=== PATIENT | female | born 1955 | race Caucasian/White ===

== ENCOUNTER 2019-05-02 15:07 | Emergency (ER) | payer OTHER, SELFPAY ==
[2019-05-02] VITALS (8 sets, daily range): BP systolic 143–170; BP diastolic 69–108; PULSE 58–72; RESP 12–19; TEMP 36.6; O2SAT 97–100
--- NOTE | ~2019-05-02 | XR_ITS ---
EXAMINATION: XR chest 2V DATE: 05/02/2019 16:49 INDICATION: Syncopal episode. Nausea. TECHNIQUE: frontal and lateral views of the chest were obtained. COMPARISON: None FINDINGS: The lungs are clear with no focal airspace opacities, pulmonary edema, pleural effusion or pneumothor ax. Moderate-sized hiatal hernia. Heart size is normal. Cholecystectomy clips in the right upper quad rant. Mild to moderate degenerative skeletal changes in the thoracic spine and bilateral acromioclavi cular joints. IMPRESSION: 1. No acute cardiopulmonary disease. 2. Moderate-sized hiatal hernia. Reviewed, dictated and finalized at location A. 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
--- NOTE | ~2019-05-02 | CT_ITS ---
EXAMINATION: CT brain wo con DATE: 05/02/2019 17:43 INDICATION: Syncope, dizziness and nausea TECHNIQUE: Computed tomography (CT) of the head was performed without intravenous contrast. Sagittal and coronal reconstructions were performed. The mA was adjusted according to patient size. Iterative reconstruction technique was employed. The dose-length product was 605.33 mGy-cm. COMPARISON: None FINDINGS: No acute intracranial hemorrhage, acute infarction or abnormal extra axial fluid collection. There is minimal scattered white matter hypoattenuation consistent with chronic small vessel ischemic disease . Ventricles are normal and symmetric. No mass/mass effect. Mild mucosal thickening the right maxill valery sinus. The orbits and mastoid air cells are normal. IMPRESSION: 1. No acute intracranial process. 2. Minimal scattered white matter hypoattenuation consistent with chronic small vessel ischemic disea se. Reviewed, dictated and finalized at location A. ASOUND TECHNOL IMPRESSION: 1. No acute intracranial process. 2. Minimal scattered white matter hypoattenuation consistent with chronic small vessel ischemic disease.
--- NOTE | 2019-05-02 15:09 | ECG_ITS ---
Measurements Intervals [place] Rate: 61 P: 38 TN: 152 QRS: 38 QRSD: 93 T: 4 QT: 413 QTc: 419 Interpretive Statements SINUS RHYTHM BORDERLINE ST-T WAVE ABNORMALITY- ANT/INF LEADS BORDERLINE ECG Electronically Signed On 05-02-2019 19:02:10 RIGGER UP by Wesley Grant D.O.
[2019-05-02 15:30] LABS: Basophils Percent Auto 0.4 % (0.2-1.2); Eosinophils Percent Auto 0.3 % (0-4.4); Hematocrit 41.9 % (37.0-47.0); Hemoglobin 13.8 g/dL (12.0-15.0); Immature Granulocyte Absolute 0.04 K/mm3 (0.00-0.031); Immature Granulocyte Percent A 0.4 % (0-0.5); Lymphocytes Absolute Auto 2.52 K/mm3 (0.9-3.2); Lymphocytes Percent Auto 23.7 % (18.3-44.2); Mean Corpuscular HGB Conc 32.9 g/dl (32-36); Mean Corpuscular Hemoglobin 29.5 pg (26-34); Mean Corpuscular Volume 89.5 fl (80-100); Mean Platelet Volume 9.7 fl (7.4-10.4); Monocytes Absolute Auto 0.6 K/mm3 (0.1-0.6); Monocytes Percent Auto 5.6 % (2.6-8.5); Neutrophils Absolute Auto 7.4 K/mm3 (1.3-6.7); Neutrophils Percent Auto 69.6 % (45.5-73.1); Platelet Count Result 394 k/mm3 (150-375); Red Blood Count 4.68 M/mm3 (4.2-5.4); Red Cell Distribution Width 13.4 % (11.5-14.5); White Blood Count 10.7 K/mm3 (4.5-10.0)
[2019-05-02 15:59] LABS: Blood Urea Nitrogen 17 mg/dL (7-17); Calcium 9.7 mg/dL (8.4-10.2); Carbon Dioxide 26 mmol/L (22-30); Chloride 100 mmol/L (98-107); Estimated Glomerular Filt Rate > 60; Glucose 125 mg/dL (65-105); Potassium 4.1 mmol/L (3.4-5.0); Sodium 138 mmol/L (137-145)
--- NOTE | 2019-05-02 16:25 | ED.DIZZY ---
HPI - Dizziness General Chief Complaint: Syncope Stated Complaint: syncope, dizzy, nausea Time Seen by Provider: 05/02/19 16:12 Source: patient Mode of arrival: wheelchair Limitations: no limitations History of Present Illness HPI Narrative: This is a 64 year old female that presents to the ER for dizziness today. Reports she had a syncopal episode yesterday morning while drying her hair. Reports she was bent over her bathtub washing her hair and started to feel lightheaded. Reports she passed out and fell to the floor. Reports she was able to get up and felt okay the rest of the day. Reports she woke up this morning and turned her head to the right and experienced sudden onset dizziness. Associated with nausea vomiting. Reports she has been laying in bed all day due to dizziness. Reports some chest pressure earlier today that was relieved after she took her reflux medicine. Denies fever, palpitations, shortness of breath, weakness, numbness, abdominal pain, dysuria or hematuria. Related Data Home Medications Medication Instructions Recorded Confirmed furosemide 20 mg tablet 20 mg PO QAM 04/07/19 sumatriptan succinate 100 mg tablet 100 mg PO ONCE 04/07/19 Nexium 05/02/19 aspirin 05/02/19 Allergies Allergy/AdvReac Type Severity Reaction Status Date / Time No Known Allergies Allergy Unverified 05/02/19 15:38 Review of Systems Review of Systems: Narrative: CONSTITUTIONAL: Denies fever ENT: Reports rhinorrhea, congestion. Denies sore throat, or otalgia. CARDIOVASCULAR: Reports chest pain RESPIRATORY: Denies cough or dyspnea. GASTROINTESTINAL: Reports nausea, vomiting. Denies abdominal pain GENITOURINARY: Denies dysuria or hematuria. NEUROLOGIC: Denies headache, numbness, or weakness. All systems reviewed & are unremarkable except as noted in HPI and below [facility] Past Medical History Medical History (Updated 05/02/19 @ 18:46 by Ninfa Holden PA-C) History of asthma History of gastroesophageal reflux (GERD) History of hypothyroidism Surgical History Surgical History (Updated 05/02/19 @ 16:26 by Ninfa Holden PA-C) History of cholecystectomy History of hysterectomy Social History Social History (Updated 05/02/19 @ 16:25 by Ninfa Holden PA-C) Smoking status: Never smoker Substance use: never Gender identity (if verbalized by the patient): Female Exam Narrative: Exam Narrative: GENERAL: Well-appearing, well-nourished, and in no acute distress. HEAD: Normocephalic, atraumatic. EYES: PERRLA and EOMI. ENT: Nares clear, no rhinorrhea or epistaxis. Mucous membranes moist. Oropharynx without tonsillar hypertrophy exudate or other lesions. Bilateral TMs pearly boyd non-bulging NECK: Supple. No adenopathy or masses. CHEST: Clear to auscultation. No respiratory distress. No wheezes rales or rhonchi HEART: Regular rate and rhythm. No murmur heard. Normal peripheral pulses EXTREMITIES: Normal range of motion. No edema. Strength equal bilateral upper and lower extremities (5/5) SKIN: Warm, dry, no rash. NEURO: No focal deficits. Alert and oriented x3. Cranial nerves II through XII grossly intact. Normal finger-nose. Normal [id number] PSYCH: Normal mood and affect Course Consultations Consultation #1: Spoke with patient's PCP about work-up will follow-up in clinic Date: 05/02/19 Time: 18:57 Vital Signs Vital signs: Vital Signs Temperature 97.8 F 05/02/19 15:10 Pulse Rate 69 05/02/19 15:10 Respiratory Rate 19 05/02/19 15:10 Blood Pressure 162/108 H 05/02/19 15:10 Pulse Oximetry 100 05/02/19 15:10 Temperature 97.8 F 05/02/19 15:10 Pulse Rate 58 L 05/02/19 18:00 Respiratory Rate 19 05/02/19 18:00 Blood Pressure 167/73 H 05/02/19 18:00 Pulse Oximetry 98 05/02/19 18:00 MDM - Dizziness MDM Narrative Medical decision making narrative: Patient presents to the ER for vertigo symptoms since this morning. Symptoms are consistent with BPPV. Sudden onset and
[2019-05-02 16:48] LABS: Troponin I < 0.012 ng/mL (0.000-0.034)
[2019-05-02] MEDS: ONDANSETRON INJ 4 MG/2 ML VIAL IV PUSH (16:53)
[2019-05-02] MEDS: MECLIZINE HCL 25 MG TABLET PO (16:54)
[2019-05-02] MEDS: SODIUM CHLORIDE 0.9% IV 1,000 ML 999 ML IV CONT (16:54)
[2019-05-02 16:55] LABS: D Dimer 0.36 ug/mL (<0.48)
[2019-05-02 18:09] LABS: Add Urine Microscopic? YES; Appearance Urine Clear (Clear); Bilirubin Urine Negative (Negative); Blood Urine Negative (Negative); Color Urine Yellow (Yellow); Glucose Urine UA Negative (Negative); Ketones Urine Negative (Negative); Leukocyte Esterase Ur Negative LEU/UL (Negative); Mucus Urine Rare /lpf; Nitrate Urine Negative (Negative); Protein Urine Negative (Negative); Specific Grav Ur 1.015 (1.001-1.035); Squamous Epithelial Cell Urine Occasional /hpf (Few); Urobilinogen Urine Negative mg/dL (<2.0); WBC Urine 0-3 /hpf
== END 2019-05-02 19:08 | disposition home or self-care (01) ==
PROVIDERS: Physician Assistant; Emergency Provider Emergency Medicine; PCP Family Medicine
DX: R42 Dizziness and giddiness (principal); J45.909 Unspecified asthma, uncomplicated; K21.9 Gastro-esophageal reflux disease without esophagitis; E03.9 Hypothyroidism, unspecified; K44.9 Diaphragmatic hernia without obstruction or gangrene; R94.31 Abnormal electrocardiogram [ECG] [EKG]
CPT/HCPCS: 36415; 70450; 71046; 80048; 81001; 84484; 85025; 85380; 87804; 93005; 96361; 96374; 99284; A9270; J2405; J7030

== ENCOUNTER 2019-12-12 07:19 | Outpatient (CLI) | payer OTHER, SELFPAY ==
--- NOTE | ~2019-12-12 | DEXA_ITS ---
Bone Density Report Name: Joyce Grimes Age: 64 Sex: Female Ethnicity: White Date of : 1955 Indication: postmenopausal; hysterectomy; Referring Provider: Syed Segura Study: Bone densitometry was performed. Exam Date: December 12, 2019 Accession number: [id number] Bone Density: Region BMD T-score Z-score Classification AP Spine (L1-L4) 0.995 -0.5 1.1 Normal Femoral Neck (Left) 0.693 -1.4 0.0 Osteopenia Total Hip (Left) 0.987 0.4 1.5 Normal Total Hip Bilateral Avg 0.959 0.2 1.3 Normal Femoral Neck (Right) 0.710 -1.3 0.2 Osteopenia Total Hip (Right) 0.931 -0.1 1.0 Normal World Health Organization criteria for BMD impression classify patients as: Normal (T-score at or above -1.0), Osteopenia (T-score between -1.0 and -2.5), or Osteoporosis (T-score at or below -2.5). 10-year Fracture Risk(1): Major Osteoporotic Fracture 7.8% Hip Fracture 0.7% Reported Risk Factors: [place] (), Neck BMD=0.693, BMI=33.6 (1) FRAX(R) Version 3.08. Fracture probability calculated for an untreated patient. Fracture probability may be lower if the patient has received treatment. Previous Exams: Region Exam Age BMD T-score BMD Change BMD Change Date g/cm2 vs Baseline vs Previous AP Spine(L1-L4) 12/12/2019 64 0.995 -0.5 -0.094(-8.6%)# -0.018(-1.8%) 12/01/2011 56 1.013 -0.3 -0.076(-7.0%)# -0.076(-7.0%)# 04/16/2009 54 1.089 0.4 Total Hip(Left) 12/12/2019 64 0.987 0.4 -0.062(-5.9%)# -0.054(-5.2%)* 12/01/2011 56 1.041 0.8 -0.008(-0.7%)# -0.008(-0.7%)# 04/16/2009 54 1.048 0.9 Total Hip(Right) 12/12/2019 64 0.931 -0.1 -0.052(-5.3%)# -0.039(-4.0%)* 12/01/2011 56 0.970 0.2 -0.014(-1.4%)# -0.014(-1.4%)# 04/16/2009 54 0.984 0.3 *Denotes significance at 95% confidence level, LSC for AP Spine = 0.022 g/cm2, LSC for Total Hip = 0.027 g/cm2 Clinical Information Provided by Patient: Has used the following medications: Vitamin D, Calcium Has the following medical conditions: Hysterectomy Patient maximum height was 65 Menopause Age: 52 No regular weight bearing exercise Drinks caffeinated beverages Onset of menses at age 16 Number of children 4 Impression: The patient has low bone mass, based on the Left Femoral Neck T-score. The patient has an estimated ten-year risk of hip fracture of 0.7% and an estimated ten-year risk of major fracture of 7.8%, based on the WHO FRAX algorithm. The BMD for the Tot
--- NOTE | ~2019-12-12 | MM_ITS ---
EXAMINATION: MM screening [facility] BI w kemal HISTORY: Screening mammogram TECHNIQUE: Craniocaudal and mediolateral oblique 3-D tomosynthesis images were obtained and synthetic 2-D images were generated. CAD analysis was submitted and interpreted. COMPARISON: 07/18/2018 diagnostic right digital mammogram and limited right breast ultrasound 07/03/2018, 06/26/2017 bilateral digital screening mammogram examinations BREAST PARENCHYMAL COMPOSITION: There are scattered areas of fibroglandular density. FINDINGS: There is no evidence of suspicious mass, calcification, or architectural distortion to sugg est malignancy in either breast. There has been no suspicious interval change. IMPRESSION: 1. No mammographic evidence of malignancy. 2. Recommend routine screening mammography in one year. BI-RADS Category 1: Negative Reviewed, dictated and finalized at location A.
== END 2019-12-12 07:20 | disposition home or self-care (01) ==
LOC: ANHIMG 07:21
PROVIDERS: PCP Family Medicine; Visit Provider Family Medicine
DX: Z12.39 Encounter for other screening for malignant neoplasm of breast (principal); Z78.0 Asymptomatic menopausal state; Z12.31 Encounter for screening mammogram for malignant neoplasm of breast; M85.852 Other specified disorders of bone density and structure, left thigh; M85.851 Other specified disorders of bone density and structure, right thigh
CPT/HCPCS: 77063; 77067; 77080

== ENCOUNTER 2020-12-24 07:28 | Outpatient (CLI) | payer OTHER, SELFPAY ==
--- NOTE | ~2020-12-24 | MM_ITS ---
EXAMINATION: MM screening [facility] BI w kemal HISTORY: Screening mammogram TECHNIQUE: Craniocaudal and mediolateral oblique 3-D tomosynthesis images were obtained and synthetic 2-D images were generated. CAD analysis was submitted and interpreted. COMPARISON: 12/12/2019, 07/18/2018, 07/03/2018, 06/26/2017 BREAST PARENCHYMAL COMPOSITION: There are scattered areas of fibroglandular density. FINDINGS: There is no evidence of suspicious mass, calcification, or architectural distortion to sugg est malignancy in either breast. There has been no suspicious interval change. IMPRESSION: 1. No mammographic evidence of malignancy. 2. Recommend routine screening mammography in one year. BI-RADS Category 1: Negative Reviewed, dictated and finalized at location A.
== END 2020-12-24 07:29 | disposition home or self-care (01) ==
PROVIDERS: PCP Family Medicine; Visit Provider Family Medicine
DX: Z12.31 Encounter for screening mammogram for malignant neoplasm of breast (principal)
CPT/HCPCS: 77063; 77067

== ENCOUNTER 2022-03-31 09:24 | Outpatient (CLI) | payer MEDICARE, OTHER, SELFPAY ==
--- NOTE | ~2022-03-31 | DEXA_ITS ---
Bone Density Report Name: LEE CALLE Age: 67 Sex: Female Ethnicity: White Date of : 1955 Indication: postmenopausal; screening for osteoporosis; hysterectomy; Referring Provider: JOYCE PACE Study: Bone densitometry was performed. Exam Date: March 31, 2022 Accession number: [id number] Bone Density: Region BMD T-score Z-score Classification AP Spine(L1-L4) 0.980 -0.6 1.2 Normal Femoral Neck (Left) 0.683 -1.5 0.0 Osteopenia Total Hip (Left) 0.978 0.3 1.5 Normal Femoral Neck (Right) 0.666 -1.7 -0.1 Osteopenia Total Hip (Right) 0.864 -0.6 0.6 Normal Total Hip Mean 0.921 -0.2 1.1 Normal World Health Organization criteria for BMD impression classify patients as: Normal (T-score at or above -1.0), Osteopenia (T-score between -1.0 and -2.5), or Osteoporosis (T-score at or below -2.5). 10-year Fracture Risk(1): Major Osteoporotic Fracture 8.7% Hip Fracture 1.0% Reported Risk Factors: [place] (), Neck BMD=0.666, BMI=33.1 (1) FRAX(R) Version 3.08. Fracture probability calculated for an untreated patient. Fracture probability may be lower if the patient has received treatment. Previous Exams: Region Exam Age BMD T-score BMD Change BMD Change Date g/cm2 vs Baseline vs Previous AP Spine (L1-L4) 03/31/2022 67 0.980 -0.6 -0.015 (-1.5%) -0.015 (-1.5%) 12/12/2019 64 0.995 -0.5 Total Hip(Left) 03/31/2022 67 0.978 0.3 -0.009 (-0.9%) -0.009 (-0.9%) 12/12/2019 64 0.987 0.4 Total Hip(Right) 03/31/2022 67 0.864 -0.6 -0.067 (-7.2%) -0.067 (-7.2%) 12/12/2019 64 0.931 -0.1 *Denotes significance at 95% confidence level, LSC for AP Spine = 0.022 g/cm2, LSC for Total Hip = 0.027 g/cm2 # Denotes dissimilar scan types or analysis methods Clinical Information Provided by Patient: Has used the following medications: Vitamin D Has the following medical conditions: Hysterectomy Patient maximum height was 65.5 Menopause Age: 30 No regular weight bearing exercise Drinks caffeinated beverages Onset of menses at age 16 Number of children 4 Impression: The patient has low bone mass, based on the Right Femoral Neck T-score. The patient has an estimated ten-year risk of hip fracture of 1% and an estimated ten-year risk of major fracture of 8.7%, based on the WHO FRAX algorithm. No significant bone loss was observed. Discussion: BONE DENSITY IS LOW AT ONE OR MORE SKELETAL SITES. This patient'
== END 2022-03-31 09:25 | disposition home or self-care (01) ==
LOC: ANHIMG 09:25
PROVIDERS: PCP Emergency Medicine; Visit Provider Physician Assistant
DX: Z78.0 Asymptomatic menopausal state (principal); M85.852 Other specified disorders of bone density and structure, left thigh; M85.851 Other specified disorders of bone density and structure, right thigh
CPT/HCPCS: 77080

== ENCOUNTER 2022-05-12 09:19 | Outpatient (CLI) | payer MEDICARE, OTHER, SELFPAY ==
--- NOTE | ~2022-05-12 | MM_ITS ---
EXAMINATION: MM screening [facility] BI w kemal HISTORY: Screening mammogram TECHNIQUE: Craniocaudal and mediolateral oblique 3-D tomosynthesis images were obtained and synthetic 2-D images were generated. CAD analysis was submitted and interpreted. COMPARISON: 12/24/2020, 12/12/2019 bilateral screening mammogram examinations BREAST PARENCHYMAL COMPOSITION: There are scattered areas of fibroglandular density. FINDINGS: Stable mildly nodular fibroglandular stroma. There is no evidence of suspicious mass, calci fication, or architectural distortion to suggest malignancy in either breast. There has been no suspi cious interval change. IMPRESSION: 1. No mammographic evidence of malignancy. 2. Recommend routine screening mammography in one year. BI-RADS Category 2: Benign finding(s). Reviewed, dictated and finalized at location A. 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
== END 2022-05-12 09:20 | disposition home or self-care (01) ==
PROVIDERS: PCP Emergency Medicine; Visit Provider Physician Assistant
DX: Z12.31 Encounter for screening mammogram for malignant neoplasm of breast (principal)
CPT/HCPCS: 77063; 77067

== ENCOUNTER 2022-12-31 08:14 | Emergency (ER) | payer MEDICARE, OTHER, SELFPAY ==
[2022-12-31] VITALS (8 sets, daily range): BP systolic 119–168; BP diastolic 65–106; PULSE 73–91; RESP 15–20; TEMP 36.2; O2SAT 96–98
--- NOTE | ~2022-12-31 | XR_ITS ---
EXAMINATION: XR chest 2V 12/31/2022 08:55 INDICATION: Chest discomfort PROCEDURE: 2 view chest COMPARISON: 05/02/2019 FINDINGS: The lungs are clear. The cardiomediastinal silhouette is within normal limits. There are no pleural effusions. There is no pneumothorax suspected. . Large hiatal hernia. There are cholecys tectomy clips. IMPRESSION: 1: NO ACUTE CARDIOPULMONARY DISEASE. 2: Large hiatal hernia. Reviewed, dictated and finalized at location B.
--- NOTE | 2022-12-31 08:15 | ECG_ITS ---
Measurements Intervals [place] Rate: 96 P: [place]: 0 QRS: 44 QRSD: 91 T: 25 QT: 343 QTc: 434 Interpretive Statements ATRIAL FIBRILLATION NONSPECIFIC T-WAVE ABNORMALITY ABNORMAL RHYTHM ECG COMPARED TO ECG 05/02/2019 15:15:35 ATRIAL FIBRILLATION NOW PRESENT T-WAVE ABNORMALITY NOW PRESENT Electronically Signed On 12-31-2022 9:30:10 CDT by Mauro Cruz M.D.
--- NOTE | 2022-12-31 08:26 | ED.CHESTPAIN ---
HPI - Chest Pain General Chief Complaint: Chest Pain Stated Complaint: RAPID HR, CP Time Seen by Provider: 12/31/22 08:20 History of Present Illness HPI narrative: Patient is a 67-year-old female who presents ER with palpitations. Ongoing over the last couple days. Associate with dyspnea and chest heaviness. No radiation of discomfort. No alleviating factors. Takes atenolol daily since having an elevated heart rate many years ago. Has no known arrhythmia. Patient also takes levothyroxine. No fevers chills or sweats. No runny nose or sore throat or productive cough. No pain with deep breath. No leg swelling. Related Data Home Medications Medication Instructions Recorded Confirmed aspirin 81 mg chewable tablet 05/02/19 06/18/22 Allergies Allergy/AdvReac Type Severity Reaction Status Date / Time No Known Allergies Allergy Verified 06/18/22 14:53 Review of Systems Review of Systems: All systems reviewed & are unremarkable except as noted in HPI and below Constitutional: Constitutional: Reports no additional constitutional complaints Cardiovascular: Cardiovascular: Reports chest pain, Reports rapid heart rate and Denies radiating jaw, neck or arm pain Respiratory: Respiratory: Denies cough and Reports dyspnea Gastrointestinal: Gastrointestinal: Denies abdominal pain, Denies diarrhea, Denies nausea and Denies vomiting Genitourinary: Genitourinary: Reports no additional female genitourinary complaints Musculoskeletal: Musculoskeletal: Reports no additional musculoskeletal complaints [facility] Past Medical History Medical History (Updated 12/31/22 @ 13:45 by Will Haskins MD) History of asthma History of gastroesophageal reflux (GERD) History of hypothyroidism Surgical History Surgical History History of anterior cruciate ligament surgery History of cholecystectomy History of hysterectomy Hx of knee surgery Family History Family History Mother Diabetes mellitus Family history of cardiovascular disease Other Family history of elevated blood lipids Family history of malignant neoplasm Social History Social History Smoking status: Never smoker Alcohol intake: never Substance use: never Lack of Transportation: No Lack of Food: Never True Current Housing: I Have Housing Concerned About Future Housing: No Difficulty Paying Gas/Electric Bills: No Difficulty Paying for Meds: No Currently Unemployed: No Education: High School Diploma/GED Difficulty w/ Childcare or Family Care: No Gender identity (if verbalized by the patient): Female Exam Narrative: GENERAL: Well-appearing, well-nourished, and in no acute distress. HEAD: Normocephalic, atraumatic. ENT: Mucous membranes moist. NECK: Supple. CHEST: Clear to auscultation. No respiratory distress. HEART: Irregularly irregular rate and rhythm normal peripheral pulses. ABDOMEN: Soft, nontender, nondistended. EXTREMITIES: Normal range of motion. No edema. SKIN: Warm, dry, no rash. NEURO: Alert and oriented x3. PSYCH: Normal mood and affect. Course Course Emergency Course: Troponin negative x2. Discussed with [facility] and its recommend patient be discharged home and have her atenolol discontinued and have her started on metoprolol 25 mg daily. It is also recommended patient be on apixaban 5 mg twice a day. They will have her follow-up in clinic. Patient will also follow-up with PCP regarding TSH level. Vital Signs Vital signs: Vital Signs Temperature 97.2 F L 12/31/22 08:23 Pulse Rate 91 12/31/22 08:23 Respiratory Rate 15 12/31/22 08:23 Blood Pressure 164/106 H 12/31/22 08:23 Pulse Oximetry 96 12/31/22 08:23 Oxygen Delivery Room Air 12/31/22 08:23 Temperature 97.2 F L 12/31/22 08:23 Pulse Rate 84
[2022-12-31 08:42] LABS: Basophils Absolute Auto 0.1 K/mm3 (0.0-0.1); Basophils Percent Auto 0.9 % (0.2-1.2); Eosinophils Absolute Auto 0.2 K/mm3 (0-0.3); Hematocrit 43.9 % (37.0-47.0); Hemoglobin 14.2 g/dL (12.0-15.0); Immature Granulocyte Absolute 0.01 K/mm3 (0.00-0.031); Immature Granulocyte Percent A 0.1 % (0-0.5); Lymphocytes Absolute Auto 3.72 K/mm3 (0.9-3.2); Lymphocytes Percent Auto 48.6 % (18.3-44.2); Mean Corpuscular HGB Conc 32.3 g/dl (32-36); Mean Corpuscular Hemoglobin 28.4 pg (26-34); Mean Corpuscular Volume 87.8 fl (80-100); Mean Platelet Volume 9.4 fl (7.4-10.4); Monocytes Absolute Auto 0.6 K/mm3 (0.1-0.6); Monocytes Percent Auto 7.8 % (2.6-8.5); Neutrophils Absolute Auto 3.1 K/mm3 (1.3-6.7); Neutrophils Percent Auto 40.6 % (45.5-73.1); Platelet Count Result 409 k/mm3 (150-375); White Blood Count 7.7 K/mm3 (4.5-10.0)
[2022-12-31] MEDS: ASPIRIN 81 MG CHEWABLE TABLET 324 MG PO (08:45)
[2022-12-31 08:52] LABS: Alanine Aminotransferase 20 U/L (6-35); Albumin Level 4.5 g/dL (3.5-5.1); Alkaline Phosphatase 83 U/L (38-126); Anion Gap 9 mmol/L (8-16); Aspartate Amino Transferase 24 U/L (14-36); Bilirubin,Total 0.5 mg/dL (0.2-1.3); Blood Urea Nitrogen 22 mg/dL (7-17); Calcium 9.7 mg/dL (8.4-10.2); Carbon Dioxide 25 mmol/L (22-30); Chloride 104 mmol/L (98-107); Estimated CRCL calculation 55 ml/min; Estimated Glomerular Filt Rate 56; Glucose 114 mg/dL (65-110); Lipase 83 U/L (23-300); Potassium 4.1 mmol/L (3.4-5.0); Sodium 138 mmol/L (137-145)
[2022-12-31 08:56] LABS: Prothrombin Time 13.6 Seconds (11.1-14.7)
[2022-12-31 09:03] LABS: Troponin I < 0.012 ng/mL (0.000-0.034)
[2022-12-31 10:27] LABS: Thyroid Stimulating Hormone Reflex 0.274 uIU/mL (0.465-4.68)
[2022-12-31 10:57] LABS: Free T4 Free Thyroxine Reflex 1.98 ng/dL (0.78-2.19)
[2022-12-31 11:42] LABS: Total Triiodothyronine (T3) 1.35 NG/ML (0.97-1.69)
[2022-12-31 12:17] LABS: Troponin I < 0.012 ng/mL (0.000-0.034)
== END 2022-12-31 13:58 | disposition home or self-care (01) ==
PROVIDERS: Emergency Provider Emergency Medicine; PCP Emergency Medicine
DX: I48.91 Unspecified atrial fibrillation (principal); K21.9 Gastro-esophageal reflux disease without esophagitis; E03.9 Hypothyroidism, unspecified; J45.909 Unspecified asthma, uncomplicated
CPT/HCPCS: 36415; 71046; 80053; 83690; 84439; 84443; 84480; 84484; 85025; 85610; 85730; 93005; 99284; A9270

== ENCOUNTER 2023-02-19 04:57 | Emergency (ER) | payer MEDICARE, OTHER, SELFPAY ==
[2023-02-19] VITALS (7 sets, daily range): BP systolic 145–193; BP diastolic 71–83; PULSE 62–74; RESP 14–20; TEMP 36.6; O2SAT 94–100
--- NOTE | ~2023-02-19 | US_ITS ---
EXAMINATION:US venous doppler LE LT INDICATION:Posterior knee pain TECHNIQUE: Multiple grayscale, color flow and Doppler images of the left lower extremity deep venous systems were obtained and reviewed. COMPARISON:No prior studies for comparison. FINDINGS: The common femoral, superficial femoral and popliteal veins demonstrate normal respiratory variation, augmentation and compressibility. Color flow is also seen within the posterior tibial, pe roneal, greater saphenous and profunda veins. IMPRESSION: 1: No lower extremity deep venous thrombosis. Reviewed, dictated and finalized at location L. 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
--- NOTE | ~2023-02-19 | XR_ITS ---
EXAMINATION: XR knee LT 3V DATE: 02/19/2023 10:09 INDICATION: Left knee pain. TECHNIQUE: 3 views of left knee were obtained. COMPARISON: None. FINDINGS: Bone alignment is normal. No fracture. There is mild tricompartmental osteoarthritis. No kn ee joint effusion. IMPRESSION: 1. Mild left knee osteoarthritis. Reviewed, dictated and finalized at location A. PER AND PRESERVER
--- NOTE | 2023-02-19 05:05 | ECG_ITS ---
Measurements Intervals [place] Rate: 68 P: 34 HI: 161 QRS: 14 QRSD: 90 T: 12 QT: 401 QTc: 427 Interpretive Statements SINUS RHYTHM CONSIDER ANTERIOR INFARCT, AGE INDETERMINATE BASELINE ARTIFACT- V4 ABNORMAL ECG COMPARED TO ECG 12/31/2022 08:21:19 SINUS RHYTHM NOW PRESENT Electronically Signed On 02-19-2023 6:50:46 MAIL DELIVERER by Wesley Grant D.O.
[2023-02-19 06:16] LABS: Basophils Absolute Auto 0.1 K/mm3 (0.0-0.1); Basophils Percent Auto 0.8 % (0.2-1.2); Eosinophils Absolute Auto 0.2 K/mm3 (0-0.3); Eosinophils Percent Auto 2.3 % (0-4.4); Hematocrit 39.4 % (37.0-47.0); Hemoglobin 12.6 g/dL (12.0-15.0); Immature Granulocyte Absolute 0.03 K/mm3 (0.00-0.031); Immature Granulocyte Percent A 0.5 % (0-0.5); Lymphocytes Absolute Auto 3.09 K/mm3 (0.9-3.2); Lymphocytes Percent Auto 47.8 % (18.3-44.2); Mean Corpuscular Hemoglobin 28.4 pg (26-34); Mean Corpuscular Volume 88.9 fl (80-100); Mean Platelet Volume 9.4 fl (7.4-10.4); Monocytes Absolute Auto 0.5 K/mm3 (0.1-0.6); Monocytes Percent Auto 7.6 % (2.6-8.5); Neutrophils Absolute Auto 2.7 K/mm3 (1.3-6.7); Platelet Count Result 326 k/mm3 (150-375); Red Blood Count 4.43 M/mm3 (4.2-5.4); Red Cell Distribution Width 13.7 % (11.5-14.5); White Blood Count 6.5 K/mm3 (4.5-10.0)
[2023-02-19 06:24] LABS: INR 1.1; Prothrombin Time 15.1 Seconds (11.1-14.7)
[2023-02-19 06:25] LABS: Partial Thromboplastin Time 28.3 SECONDS (22.3-36.8)
[2023-02-19 06:27] LABS: Alanine Aminotransferase 17 U/L (6-35); Albumin Level 4.1 g/dL (3.5-5.1); Alkaline Phosphatase 73 U/L (38-126); Anion Gap 10 mmol/L (8-16); Aspartate Amino Transferase 27 U/L (14-36); Bilirubin,Total 0.4 mg/dL (0.2-1.3); Blood Urea Nitrogen 21 mg/dL (7-17); Calcium 9.3 mg/dL (8.4-10.2); Carbon Dioxide 25 mmol/L (22-30); Chloride 105 mmol/L (98-107); Estimated CRCL calculation 66 ml/min; Estimated Glomerular Filt Rate > 60; Glucose 113 mg/dL (65-110); Lipase 72 U/L (23-300); Potassium 4.1 mmol/L (3.4-5.0); Sodium 140 mmol/L (137-145)
[2023-02-19 06:37] LABS: Troponin I < 0.012 ng/mL (0.000-0.034)
--- NOTE | 2023-02-19 07:54 | ED.GENADULT ---
HPI - General Adult General Chief complaint: Arrhythmia/Palpitations Stated complaint: palpations Time Seen by Provider: 02/19/23 06:56 History of Present Illness HPI narrative: 67-year-old female presenting to the emergency department for evaluation some posterior left knee pain after episode of AFib. Patient was diagnosed with AFib in December and is currently taking Eliquis and metoprolol. Patient follows up with Dr. Null. But 2 weeks ago patient reports she had about 2 hours of a run AFib and afterwards started having some left knee pain left knee pain has persisted. Patient denies any posterior calf or medial thigh pain. Patient denies any associated chest pain or shortness of breath. Related Data Allergies Allergy/AdvReac Type Severity Reaction Status Date / Time No Known Allergies Allergy Verified 01/18/23 13:49 Review of Systems Review of Systems: All systems reviewed & are unremarkable except as noted in HPI and below PMFSH Past Medical History Medical History (Updated 02/19/23 @ 09:39 by Audi Hogan MD) History of asthma History of gastroesophageal reflux (GERD) History of hypothyroidism Surgical History Surgical History History of anterior cruciate ligament surgery History of cholecystectomy History of hysterectomy Hx of knee surgery Family History Family History Mother Diabetes mellitus Family history of cardiovascular disease Other Family history of elevated blood lipids Family history of malignant neoplasm Social History Social History Smoking status: Never smoker Alcohol intake: never Substance use: never Lack of Transportation: No Lack of Food: Never True Current Housing: I Have Housing Concerned About Future Housing: No Difficulty Paying Gas/Electric Bills: No Difficulty Paying for Meds: No Currently Unemployed: No Education: High School Diploma/GED Difficulty w/ Childcare or Family Care: No Gender identity (if verbalized by the patient): Female Exam Narrative: APPEARANCE: Well appearing, no pain, no distress, well-nourished. HEAD: normocephalic, atraumatic. EYES: PERRLA/EOMI, conjunctivae clear. NOSE: Normal no drainage EARS:TMS clear with good light reflex. THROAT: Pharynx clear, no exudate. NECK: Supple. No adenopathy, no masses. RESPIRATORY: Airway patent, respirations nonlabored. Clear to auscultation bilaterally, no rales, rhonchi, wheezing. CARDIOVASCULAR: Regular rate and rhythm without murmurs rubs or gallops. ABDOMINAL: Soft, nontender, nondistended, normal bowel sounds MUSCULOSKELETAL: No significant lower extremity edema no posterior calf tenderness and no medial thigh tenderness to palpation. Patient does have some left posterior knee tenderness to palpation NEURO: Alert. Cranial nerves II through XII intact. Good gait. Good coordination SKIN: Warm, dry. Normal Color PSYCHIATRIC: Normal affect/mood. Course Course Emergency Course: 67-year-old female presents emergency department for evaluation for left knee pain. Patient is afebrile with no leukocytosis and hemoglobin of 12.6. INR is 1.1. No significant abnormalities on her CMP. Ultrasound was negative for DVT. Patient had negative serial troponins. Patient denies any heart palpitations denies any chest pain. Patient was encouraged of close follow-up with Cardiology. X-ray was negative for acute fracture dislocation. Patient and family are updated on all of the labs imaging the ultrasound and x-rays. All questions concerns were addressed patient was comfortable the plan with discharge and close follow-up with her primary care physician Vital Signs Vital signs: Vital Signs Temperature 97.8 F 02/19/23 05:02 Pulse Rate 74 02/19/23 05:02 Respiratory Rate 20 02/19/23 05:02 Blood Press
[2023-02-19 09:33] LABS: Troponin I < 0.012 ng/mL (0.000-0.034)
== END 2023-02-19 10:39 | disposition home or self-care (01) ==
PROVIDERS: Emergency Medicine; Emergency Provider Emergency Medicine; PCP Emergency Medicine
DX: M79.605 Pain in left leg (principal); J45.909 Unspecified asthma, uncomplicated; K21.9 Gastro-esophageal reflux disease without esophagitis; E03.9 Hypothyroidism, unspecified; Z79.01 Long term (current) use of anticoagulants
CPT/HCPCS: 36415; 73562; 80053; 83690; 84484; 85025; 85610; 85730; 93005; 93971; 99284

== ENCOUNTER 2023-04-06 11:53 | Outpatient (CLI) | payer MEDICARE, OTHER, SELFPAY ==
--- NOTE | ~2023-04-06 | MR_ITS ---
MRI of the left knee Clinical history: Internal drainage Technique: Coronal proton density and proton density-weighted images, sagittal proton-density and T2 fat-sat images, and axial proton-density fat-saturated images were acquired. Findings: Anterior and posterior cruciate ligaments are intact. Medial collateral ligament and the la teral collateral ligament conflux are intact. Popliteus tendon is intact. There is a radial tear at the posterior root of the medial meniscus. No lateral meniscal tear seen. There is mild diffuse chondral thinning along the medial femoral condyle. Lateral compartment articul ar cartilage dose is minimal thinning. There is moderate to high-grade chondral malacia over the medi al patellar facet. Femoral trochlear cartilage demonstrates moderate thinning medially. Extensor mechanism is intact. There is minimal joint effusion. There is small to moderate Santoyo's cys t. Impression: Radial tear at the posterior root of the medial meniscus. Mild degenerative change overall, as detailed above. Dliua-vv-qeaadzrt complex Santoyo's cyst. Reviewed, dictated and finalized at location . E TRANSITION Impression: Radial tear at the posterior root of the medial meniscus. Mild degenerative change overall, as detailed above. Yuxin-et-qdltjmwv complex Santoyo's cyst.
--- NOTE | ~2023-04-06 | XR_ITS ---
Left Knee Technique: AP, lateral, and sunrise views were obtained. Clinical History: Pain Findings: No fracture or dislocation is seen. Osseous alignment is anatomic. Joint spaces are preserv ed without degenerative or erosive change. Soft tissues are unremarkable. No joint effusion is seen. Impression: Unremarkable left knee radiographs. Reviewed, dictated and finalized at location . 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
== END 2023-04-06 11:54 | disposition home or self-care (01) ==
LOC: ANHIMG 11:54
PROVIDERS: PCP Emergency Medicine; Visit Provider Family Medicine
DX: M17.12 Unilateral primary osteoarthritis, left knee (principal); S83.242A Other tear of medial meniscus, current injury, left knee, initial encounter; M71.22 Synovial cyst of popliteal space [Baker], left knee; X58.XXXA Exposure to other specified factors, initial encounter
CPT/HCPCS: 73562; 73721

== ENCOUNTER 2023-05-02 11:20 | Outpatient (CLI) | payer MEDICARE, OTHER, SELFPAY ==
[2023-05-02 20:16] LABS: Free T4 Free Thyroxine 1.65 ng/mL (0.78-2.19)
[2023-05-02 21:16] LABS: Total Triiodothyronine (T3) 0.98 NG/ML (0.97-1.69)
== END 2023-05-02 11:21 | disposition home or self-care (01) ==
LOC: ANHGOSHLAB 11:22
PROVIDERS: PCP Emergency Medicine; Visit Provider Emergency Medicine
DX: E03.9 Hypothyroidism, unspecified (principal); I10 Essential (primary) hypertension
CPT/HCPCS: 36415; 84439; 84443; 84480

== ENCOUNTER 2023-05-31 13:24 | Outpatient (CLI) | payer MEDICARE, OTHER, SELFPAY ==
[2023-05-31 16:51] LABS: Free T4 Free Thyroxine 1.18 ng/mL (0.78-2.19)
== END 2023-05-31 13:25 | disposition home or self-care (01) ==
LOC: ANHGOSHLAB 13:27
PROVIDERS: PCP Emergency Medicine; Visit Provider Emergency Medicine
DX: E03.9 Hypothyroidism, unspecified (principal); I10 Essential (primary) hypertension
CPT/HCPCS: 36415; 84439; 84443; 84480

== ENCOUNTER 2023-07-09 15:13 | Outpatient (CLI) | payer MEDICARE, OTHER, SELFPAY ==
--- NOTE | ~2023-07-09 | MM_ITS ---
EXAMINATION: MM screening becka BI w kemal HISTORY: Screening TECHNIQUE: Craniocaudal and mediolateral oblique 3-D tomosynthesis images were obtained and synthetic 2-D images were generated. CAD analysis was submitted and interpreted. COMPARISON: Comparison to multiple prior studies sequentially, with oldest reviewed study dated 12/11. BREAST PARENCHYMAL COMPOSITION: Not dense: There are scattered areas of fibroglandular density. FINDINGS: The right breast is stable without evidence for malignancy. There are developing asymmetrie s in the lateral aspect of the left breast. IMPRESSION: 1. Developing left breast asymmetries. 2. Additional mammographic views and possible breast ultrasound are recommended. BI-RADS Category 0: Incomplete: Needs additional imaging evaluation. Reviewed, dictated and finalized at location B. IMPRESSION: 1. Developing left breast asymmetries. 2. Additional mammographic views and possible breast ultrasound are recommended . BI-RADS Category 0: Incomplete: Needs additional imaging evaluation.
== END 2023-07-09 15:14 | disposition home or self-care (01) ==
PROVIDERS: PCP Emergency Medicine; Visit Provider Emergency Medicine
DX: Z12.31 Encounter for screening mammogram for malignant neoplasm of breast (principal); R92.8 Other abnormal and inconclusive findings on diagnostic imaging of breast
CPT/HCPCS: 77063; 77067

== ENCOUNTER 2023-07-16 09:41 | Outpatient (CLI) | payer MEDICARE, OTHER, SELFPAY ==
--- NOTE | ~2023-07-16 | MMUS_ITS ---
EXAMINATION: MM diagnostic becka LT w kemal, US breast LT limited HISTORY: Developing lateral left breast asymmetries reported on July 09, 2023 screening mammogram TECHNIQUE: Additional 3-D tomosynthesis images of the left breast were performed and synthetic 2-D im ages were generated. CAD analysis was submitted and interpreted. High resolution upper outer and lowe r-outer quadrant left breast ultrasound was performed. COMPARISON: July 09, 2023 bilateral screening mammogram FINDINGS: MAMMOGRAPHIC FINDINGS: No suspicious mass, architectural distortion, malignant calcification, skin thickening or retraction is detected. Occasional small low-density circumscribed opacities, benign in appearance. ULTRASOUND: 12:00 near nipple: 3.4 x 4.9 x 2.8 mm circumscribed largely sonolucent lesion, without posterior shad owing or internal vascularity, benign in appearance. 4:00 near nipple: 3.8 x 3.8 x 2.7 mm circumscribed oval sonolucency consistent with small cyst No suspicious mass or shadowing is detected. IMPRESSION: 1. Benign findings 2. Routine annual mammographic screening is recommended BI-RADS Category 2: Benign finding(s). Reviewed, dictated and finalized at location A. IMPRESSION: 1. Benign findings 2. Routine annual mammographic screening is recommended BI-RADS Category 2: Benign finding(s).
== END 2023-07-16 09:42 | disposition home or self-care (01) ==
LOC: CHSIMG 09:42
PROVIDERS: PCP Emergency Medicine; Visit Provider Emergency Medicine
DX: R92.8 Other abnormal and inconclusive findings on diagnostic imaging of breast (principal)
CPT/HCPCS: 76642; 77061; 77065; G0279

== ENCOUNTER 2023-09-12 11:31 | Outpatient (CLI) | payer MEDICARE, OTHER, SELFPAY ==
--- NOTE | ~2023-09-12 | XR_ITS ---
XR chest 2V 09/12/2023 11:49 Indication: Shortness of breath Procedure: 2 view chest Comparison: 12/31/2022 Findings: Large hiatal hernia. Heart size normal. No focal air space disease, pulmonary edema, pleura l effusion or suspected pneumothorax. Impression: 1: Large hiatal hernia. Reviewed, dictated and finalized at location B. Impression: 1: Large hiatal hernia.
== END 2023-09-12 11:32 | disposition home or self-care (01) ==
PROVIDERS: PCP Emergency Medicine; Visit Provider Internal Medicine Cardiovascular Disease
DX: R06.02 Shortness of breath (principal); K44.9 Diaphragmatic hernia without obstruction or gangrene
CPT/HCPCS: 71046

== ENCOUNTER 2023-10-31 10:33 | Outpatient (CLI) | payer MEDICARE, OTHER, SELFPAY ==
[2023-10-31 14:14] LABS: Free T4 Free Thyroxine 1.19 ng/mL (0.78-2.19)
[2023-10-31 14:56] LABS: Total Triiodothyronine (T3) 1.14 NG/ML (0.97-1.69)
== END 2023-10-31 10:34 | disposition home or self-care (01) ==
LOC: ANHGOSHLAB 10:34
PROVIDERS: PCP Emergency Medicine; Visit Provider Emergency Medicine
DX: F33.9 Major depressive disorder, recurrent, unspecified (principal); E03.9 Hypothyroidism, unspecified; I48.19 Other persistent atrial fibrillation
CPT/HCPCS: 36415; 84439; 84443; 84480

== ENCOUNTER 2023-12-09 09:23 | Outpatient (CLI) | payer MEDICARE, OTHER, SELFPAY ==
[2023-12-09 13:39] LABS: Total Triiodothyronine (T3) 1.14 NG/ML (0.97-1.69)
[2023-12-09 13:52] LABS: Free T4 Free Thyroxine 1.18 ng/mL (0.78-2.19)
== END 2023-12-09 09:24 | disposition home or self-care (01) ==
PROVIDERS: PCP Emergency Medicine; Visit Provider Emergency Medicine
DX: E03.9 Hypothyroidism, unspecified (principal)
CPT/HCPCS: 36415; 84439; 84443; 84480

== ENCOUNTER 2024-06-20 16:32 | Emergency (ER) | payer MEDICARE, OTHER, SELFPAY ==
--- NOTE | ~2024-06-20 | XR_ITS ---
HISTORY: distal thumb injury COMPARISON: None TECHNIQUE: 2 views of the right first digit FINDINGS: No acute fracture. Significant degenerative disease is identified with joint space narrowing, and radial erosion with ov erhanging edges. Soft tissues are unremarkable without radiopaque foreign body, soft tissue swelling or significant ca lcification. Diffuse bony demineralization. IMPRESSION: Findings suggesting long-standing arthritis of the distal interphalangeal joint space of the right thumb, as detailed above. No acute fracture. Reviewed, dictated and finalized at location A. IMPRESSION: Findings suggesting long-standing arthritis of the distal interpha langeal joint space of the right thumb, as detailed above. No acute fracture.
--- OUTSIDE RECORDS SUMMARY | 2024-06-20 16:34 | XMS_ITS | Clinical Summary ---
Author Organization [facility] Address [address] [place] [phone] Phone Care Team Providers Care Machine Filler Servicer Name Role Phone Provider, Unknown Primary Care Provider Unavaila ble Allergies No known active allergies Medications atenolol (TENORMIN) 100 MG Tablet 12/14/2019 Active Synthroid 137 MCG Tablet 01/12/2020 Active furosemide (LASIX) 20 MG Tablet 12/14/2019 Active ASPIRIN PO Take by mouth. Active Active Problems No known active problems Social History Tobacco Use Types Packs/Day Years Used Date Smoking Tobacco: Never Smokeless Tobacco: Never Comments No Sex and Gender Information Value Date Recorded Sex Assigned at Not on file Legal Sex Female 2:28 PM EGG TESTER Gender Identity Not on file Sexual Orientation Not on file Last Filed Vital Signs Vital Sign Reading Time Taken Comments Blood Pressure 100/70 01/30/2020 3:09 PM EGG TESTER Pulse 78 01/30/2020 3:09 PM EGG TESTER Temperature 36.6 C (97.8 F) 01/30/2020 3:09 PM EGG TESTER Respiratory Rate 20 01/30/2020 3:09 PM EGG TESTER Oxygen Saturation 98% 01/30/2020 3:09 PM EGG TESTER Inhaled Oxygen Concentration - - Weight - - Height - - Body Mass Index - - Plan of Treatment Health Maintenance Due Date Last Done Comments DEXA Bone Density 1955 Hepatitis C Virus (HCV) Screening 1955 Colonoscopy 2002 Colorectal Cancer Screening 2002 Cologuard 2007 Immunochemical Fecal Occult Blood 2007 Mammogram 2007 Pneumococcal Immunization (5 0+ years) (1 of 1 - PCV) 2007 Zoster Immunization (1 of 2) 2007 Influenza Immunization (#1) 2023 11/20/2017 SARS-COV-2 Immunization ( season) 2023 12/12/2020, 11/21/2020 Respiratory Syncytial Virus (RSV) Immunization (Adult) (1 - 1-dose 75+ series) 2032 DTaP/Tdap/Td Immunization Discontinued 11/20/2019 TdaP Immunization Completed 11/20/2019 Hepatitis B Immunization Aged Out No longer eligible based on patient's age to complete this topic Meningococcal Immunization (ACWY) Aged Out No longer eligible based on patient's age to complete this topic Rotavirus Immunization Aged Out No lo nger eligible based on patient's age to complete this topic Care Teams Machine Filler Servicer Relationship Specialty Start Date End Date Provider, Unknown UNKNOWN PCP - General 01/30/20
[2024-06-20 16:36] VITALS: BP 162/81; PULSE 67; RESP 16; TEMP 36.9; O2SAT 98
--- OUTSIDE RECORDS SUMMARY | 2024-06-20 17:13 | XMS_ITS | Clinical Summary ---
Author Organization [facility] Address [address] [place] [phone] Phone Care Team Providers Care Facilities Coordinator Name Role Phone Provider, Unknown Primary Care [...] on file Legal Sex Female 2:28 PM ULTRASOUND SPECIALIST Gender Identity Not on file Sexual Orientation Not on file Last Filed Vital Signs Vital Sign Reading Time Taken Comments Blood Pressure 100/70 01/30/2020 3:09 PM ULTRASOUND SPECIALIST Pulse 78 01/30/2020 3:09 PM ULTRASOUND SPECIALIST Temperature 36.6 C (97.8 F) 01/30/2020 3:09 PM ULTRASOUND SPECIALIST Respiratory Rate 20 01/30/2020 3:09 PM ULTRASOUND SPECIALIST Oxygen Saturation 98% 01/30/2020 3:09 PM ULTRASOUND SPECIALIST Inhaled Oxygen Concentration - - Weight - [...] age to complete this topic Care Teams Facilities Coordinator Relationship Specialty Start Date End Date Provider, Unknown UNKNOWN PCP - General 01/30/20
--- NOTE | 2024-06-20 17:44 | ED_ITS ---
HPI - Extremity Injury (Upper) General Chief Complaint: Extremity Injury, Upper Stated Complaint: Injury to right thumb after falling Time Seen by Provider: 06/20/24 16:42 History of Present Illness HPI narrative: Patient is a 69-year-old female who presents ER with right thumb pain. Had a trip and fall yesterday and caught herself on the ground. She had no pain in her thumb but when she pushed herself back up she felt a sudden pain in the D IP of her thumb. Pain worsened today. Has increased pain and decreased function with trying to flex at the joint. Mild swelling. No fevers or chills or sweats. No head injury. Related Data Home Medications ?Medication ?Instructions ?Recorded ?Confirmed ?Last Taken ?Type acetaminophen 325 mg capsule 650 mg PO DAILY PRN pain 05/02/23 10/31/23 Unknown History esomeprazole magnesium 20 mg 40 mg PO DAILY 05/02/23 10/31/23 Unknown History capsule,delayed release flecainide 50 mg tablet 50 mg PO Q12H 05/02/23 10/31/23 Unknown History diltiazem HCl 120 mg 240 mg PO DAILY 10/31/23 10/31/23 Unknown History capsule,extended release 24 hr Allergies Allergy/AdvReac Type Severity Reaction Status Date / Time No Known Allergies Allergy Verified 06/20/24 16:32 Review of Systems Constitutional: Constitutional: Reports no additional constitutional complaints Musculoskeletal: Musculoskeletal: Reports no additional musculoskeletal complaints Neurologic: Reports system reviewed and no additional complaints, except as documented [facility] Past Medical History Medical History (Updated 06/20/24 @ 18:21 by Will Haskins MD) History of hypothyroidism History of gastroesophageal reflux (GERD) History of asthma Surgical History Surgical History Hx of knee surgery History of anterior cruciate ligament surgery History of hysterectomy History of cholecystectomy Family History Family History Mother Diabetes mellitus Family history of cardiovascular disease Other Family history of elevated blood lipids Family history of malignant neoplasm Social History Social History Smoking status: Never smoker Alcohol intake: never Substance use: never Lack of Transportation: No Lack of Food: Never True Current Housing: I Have Housing Concerned About Future Housing: No Difficulty Paying Gas/Electric Bills: No Difficulty Paying for Meds: No Currently Unemployed: No Education: High School Diploma/GED Difficulty w/ Childcare or Family Care: No Gender identity (if verbalized by the patient): Female Exam Narrative: GENERAL: Well-appearing, well-nourished, and in no acute distress. HEAD: Normocephalic, atraumatic. EXTREMITIES: Normal range of motion. No edema. Right thumb with tenderness the D IP. The distal phalanx ambulates laterally when lying at the palmar aspect. Limited flexion due to pain at the DIP but not the MCP. SKIN: Warm, dry, no rash. NEURO: No focal deficits. Alert and oriented x3. PSYCH: Normal mood and affect. Course Course Emergency Course: Informed of results. Discharge home. Vital Signs Vital signs: Vital Signs Temperature 98.4 F 06/20/24 16:36 Pulse Rate 67 06/20/24 16:36 Respiratory Rate 16 06/20/24 16:36 Blood Pressure 162/81 H 06/20/24 16:36 Pulse Oximetry 98 06/20/24 16:36 Temperature 98.4 F 06/20/24 16:36 Pulse Rate 67 06/20/24 16:36 Respiratory Rate 16 06/20/24 16:36 Blood Pressure 162/81 H 06/20/24 16:36 Pulse Oximetry 98 06/20/24 16:36 MDM - Extremity Injury (Upper) Imaging Data Radiologist's impression: ITS Impressions Finger X-Ray 06/20/24 17:52 IMPRESSION: Findings suggesting long-standing arthritis of the distal interphalangeal joint space of the right thumb, as detailed above. No acute fracture. Discharge Plan Discharge Clinical Impression: Degenerative arthritis of thumb Patient Disposition: Home, Self-Care Condition: Stable Instructions: Arthritis (ED) Additional Instructions: Take Tylenol as needed for pain. You may ice your thumb. Return to the ER if you have new injury. Patient Language: Monegasque Prescriptions: No Action acetaminophen 325 mg capsule 650 mg PO DAILY PRN (Reason: pain) esomeprazole magnesium 20 mg capsule,delayed release(DR/EC) 40 mg PO DAILY flecainide 50 mg tablet 50 mg PO Q12H diltiazem HCl 120 mg capsule,extended release 24hr 240 mg PO DAILY losartan 50 mg tablet See Rx Instructions .ROUTE .COMPLEX Qty: 90 2RF Dose Instruction: TAKE 1 TABLET BY MOUTH DAILY Rx Instructions: TAKE 1 TABLET BY MOUTH DAILY apixaban 5 mg tablet 5 mg PO BID Qty: 180 3RF furosemide 20 mg tablet See Rx Instructions .ROUTE .COMPLEX Qty: 90 1RF Dose Instruction: TAKE 1 TABLET EVERY MORNING Rx Instructions: TAKE 1 TABLET EVERY MORNING levothyroxine 112 mcg tablet 112 mcg PO DAILY Qty: 90 1RF Follow-up/Referrals: Dashawn Maher MD [Primary Care Provider] - 1 Week
== END 2024-06-20 18:27 | disposition home or self-care (01) ==
PROVIDERS: Emergency Provider Emergency Medicine; PCP Family Medicine
DX: M19.041 Primary osteoarthritis, right hand (principal); J45.909 Unspecified asthma, uncomplicated; E03.9 Hypothyroidism, unspecified; K21.9 Gastro-esophageal reflux disease without esophagitis; Z90.710 Acquired absence of both cervix and uterus; Z90.49 Acquired absence of other specified parts of digestive tract; Z79.899 Other long term (current) drug therapy
CPT/HCPCS: 73140; 99283

== ENCOUNTER 2024-07-20 10:13 | Outpatient (CLI) | payer MEDICARE, OTHER, SELFPAY ==
--- NOTE | ~2024-07-20 | MM_ITS ---
EXAMINATION: MM screening becka BI w kemal HISTORY: Screening mammogram TECHNIQUE: Craniocaudal and mediolateral oblique 3-D tomosynthesis images were obtained and synthetic 2-D images were generated. CAD analysis was submitted and interpreted. COMPARISON: 07/09/2023, 05/12/2022, 12/24/2020 BREAST PARENCHYMAL COMPOSITION:Not Dense. There are scattered areas of fibroglandular density. FINDINGS: No suspicious mass, calcification, or architectural distortion are identified in either hollie ast to suggest malignancy. There has been no suspicious interval change. IMPRESSION: No mammographic evidence of malignancy. Recommend routine screening mammography in one year. BI-RADS Category 1: Negative Reviewed, dictated and finalized at location .
--- OUTSIDE RECORDS SUMMARY | 2024-07-20 11:42 | XMS_ITS | Clinical Summary ---
Author Organization [facility] Address [address] [place] [phone] Phone Care Team Providers Care Solution Make Up Operator Name Role Phone Provider, Unknown Primary Care [...] on file Legal Sex Female 2:28 PM BARREL COOPER Gender Identity Not on file Sexual Orientation Not on file Last Filed Vital Signs Vital Sign Reading Time Taken Comments Blood Pressure 100/70 01/30/2020 3:09 PM BARREL COOPER Pulse 78 01/30/2020 3:09 PM BARREL COOPER Temperature 36.6 C (97.8 F) 01/30/2020 3:09 PM BARREL COOPER Respiratory Rate 20 01/30/2020 3:09 PM BARREL COOPER Oxygen Saturation 98% 01/30/2020 3:09 PM BARREL COOPER Inhaled Oxygen Concentration - - Weight - [...] age to complete this topic Care Teams Solution Make Up Operator Relationship Specialty Start Date End Date Provider, Unknown UNKNOWN PCP - General 01/30/20
== END 2024-07-20 10:14 | disposition home or self-care (01) ==
LOC: ANHIMG 10:16
PROVIDERS: PCP Family Medicine; Visit Provider Family Medicine
DX: Z12.31 Encounter for screening mammogram for malignant neoplasm of breast (principal)
CPT/HCPCS: 77063; 77067

== ENCOUNTER 2025-02-11 09:50 | Outpatient (CLI) | payer MEDICARE, OTHER, SELFPAY ==
--- NOTE | ~2025-02-11 | DEXA_ITS ---
Bone Density Report Name: LEE CALLE Age: 69 Sex: Female Ethnicity: White Date of : 1955 Indication: postmenopausal; screening for osteoporosis; hysterectomy; Referring Provider: DONTAE PATEL Study: Bone densitometry was performed. Exam Date: February 11, 2025 Accession number: [id number] Bone Density: Region BMD T-score Z-score Classification AP Spine(L1-L4) 1.005 -0.4 1.6 Normal Femoral Neck (Left) 0.611 -2.1 -0.5 Osteopenia Total Hip (Left) 0.902 -0.3 1.1 Normal Femoral Neck (Right) 0.623 -2.0 -0.4 Osteopenia Total Hip (Right) 0.826 -0.9 0.4 Normal Total Hip Mean 0.864 -0.6 0.8 Normal World Health Organization criteria for BMD impression classify patients as: Normal (T-score at or above -1.0), Osteopenia (T-score between -1.0 and -2.5), or Osteoporosis (T-score at or below -2.5). 10-year Fracture Risk(1): Major Osteoporotic Fracture 11% Hip Fracture 2.0% Reported Risk Factors: [place] (), Neck BMD=0.611, BMI=32.8 (1) FRAX(R) Version 3.08. Fracture probability calculated for an untreated patient. Fracture probability may be lower if the patient has received treatment. Previous Exams: -- Region Exam Age BMD T-score BMD Change BMD Change Date g/cm2 vs Baseline vs Previous -- AP Spine (L1-L4) 02/11/2025 69 1.005 -0.4 -0.8%# -0.8%# 12/01/2011 56 1.013 -0.3 Total Hip(Left) 02/11/2025 69 0.902 -0.3 -13.3%# -13.3%# 12/01/2011 56 1.041 0.8 Total Hip(Right) 02/11/2025 69 0.826 -0.9 -14.8%# -14.8%# 12/01/2011 56 0.970 0.2 -- *Denotes significance at 95% confidence level, LSC for AP Spine = 0.022 g/cm2, LSC for Total Hip = 0.027 g/cm2 # Denotes dissimilar scan types or analysis methods Clinical Information Provided by Patient: Has used the following medications: Vitamin D, Calcium Has the following medical conditions: Hysterectomy Patient maximum height was 64 Menopause Age: 52 No regular weight bearing exercise Onset of menses at age 14 Number of children 4 Impression: The patient has low bone mass, based on the Left Femoral Neck T-score. The patient has an estimated ten-year risk of hip fracture of 2% and an estimated ten-year risk of major fracture of 11%, based on the WHO FRAX algorithm. Unable to evaluate interval change due to the use of different scan modes. Discussion: BONE DENSITY IS LOW AT ONE OR MORE SKELETAL SITES. This patient's lowest T-score is low at one or more skeletal sites. It meets the World Health Organization's (WHO) criteria for ?low bone mass? (T-score between -1.0 and -2.5). The patient's 10-year risk of fracture as calculated by FRAX is less than the threshold where pharmacological therapy is recommended by the National Osteoporosis Foundation (NOF). However, all treatment decisions require clinical judgment and consideration of individual patient factors, including patient preferences, comorbidities, previous drug use, risk factors not captured in the FRAX model (e.g., frailty, falls, vitamin D deficiency, increased bone turnover, interval significant decline in bone density) and possible under or overestimation of fracture risk by FRAX. The patient should follow a healthful lifestyle (good nutrition with adequate calcium and vitamin D, and appropriate weight-bearing exercise). Follow-Up: Consider repeating this study in 2 to 3 years to reassess this patient's status, or sooner if there is some new clinical indication. Reported by: JAMSHID on 02/11/2025 10:13:00 AM. Reviewed, dictated and finalized at location A.
== END 2025-02-11 09:51 | disposition home or self-care (01) ==
PROVIDERS: PCP Family Medicine; Visit Provider Student in an Organized Health Care Education/Training Program
DX: Z78.0 Asymptomatic menopausal state (principal); M85.852 Other specified disorders of bone density and structure, left thigh; M85.851 Other specified disorders of bone density and structure, right thigh
CPT/HCPCS: 77080